=== PATIENT | female | born 1985 | race Caucasian/White ===

== ENCOUNTER 2016-10-22 01:35 | Emergency (ER) | payer BC, OTHER ==
[2016-10-22] MEDS ORDERED: ONDANSETRON HCL/PF 2 MG/ML VIAL IV ONE (01:49)
[2016-10-22] MEDS ORDERED: NORMAL SALINE 1,000 ML IV ONE (01:50)
[2016-10-22] MEDS ORDERED: ONDANSETRON HCL/PF 2 MG/ML VIAL ONE (01:52)
--- NOTE | 2016-10-22 01:54 | ERNOTE ---
Abdominal HPI - General Chief Complaint: Abdominal Pain Time Seen by Provider: 10/22/16 01:44 Source: patient Exam Limitations: no limitations - Immun/Allergies/Home Medications Immunizatons: IMMUNIZATION HX Immunizations Up to Date No History of Influenza Vaccine No Hx Pneumococcal Vaccination No Allergies/Adverse Reactions: Allergies No Known Allergies Allergy (Verified 10/22/16 01:42) Home Medications: HOME MEDICATIONS NK [No Home Medication] 10/22/16 [Last Taken Unknown] - History of Present Illness Narrative: Onset of vomiting while sleeping around 22:00. Pt had gone to bed around 21: 00. Pt had beer and shots around 18:00 and pizza after that but felt fine when she went to bed. Tried water but she continued to vomit Timing: getting worse Quality: moderate, severe Activities at Onset: sleep Prior Abdominal Problems: Present: similar symptoms - prior to cholecystectomy Review of Systems - Review of Systems Constitutional: Present: no symptoms reported EYE: Present: no symptoms reported ENT: Present: no symptoms reported Respiratory: Present: no symptoms reported Cardiology: Present: no symptoms reported Gastrointestinal/Abdominal: Present: See HPI, abdominal pain Genitourinary: Present: no symptoms reported Musculoskeletal: Present: no symptoms reported Skin: Present: no symptoms reported Neurological: Present: no symptoms reported Endocrine: Present: no symptoms reported - Patient's Past Medical History Patient History - Medical: Anxiety Patient History - Cardiac/Respiratory: No pertinent hx Patient History - Cancer: Melanoma Patient History - Surgical Procedures: Cholecystectomy, EGD, Tubal Ligation Patient History - Other: None LMP (females 10-50): last week LMP (Calendar): 10/16/16 - Family History Mother Family History - Medical: , History Unknown Father Family History - Medical: , History Unknown - Social History Living Situations: home Abuse History: No History of abuse, Physical abuse, Emotional abuse Psych History: Hx of Anxiety Does anyone smoke in the home?: Yes Smoking Status: Current every day smoker Alcohol Use: rarely Drug Use: none - Immunizations Immunizations Up to Date: No Hx Pneumococcal Vaccination: No History of Influenza Vaccine: No Physical Exam - Physical Exam General Appearance: Present: wd/wn, alert, moderate distress Eye Exam: Normal inspection: bilateral, PERRL: bilateral, EOMI: bilateral Ears, Nose, Throat: Present: normal ENT inspection Neck: Present: normal inspection, nontender, supple Respiratory: Present: no respiratory distress, no accessory muscle use Gastrointestinal/Abdominal: Present: tenderness - epigastrium, abnormal bowel sounds - decreased, guarding. Absent: distended, rebound Back Exam: Present: normal inspection, normal range of motion Extremity Exam: Present: normal range of motion, no edema Neurological Exam: Present: alert, oriented, normal mood/affect, no motor/ sensory deficits Skin Exam: Present: normal color, warm/dry ED Progress - Results and Orders Patient's Lab Results:: I have reviewed the patient's lab results. Results and Orders: Laboratory Tests 10/22/16 01:49 WBC 10.6 H Hgb 15.6 Hct 44.9 Plt Count 259 Laboratory Tests 10/22/16 10/22/16 01:49 01:49 Sodium 142 Potassium 3.7 Chloride 103 Carbon Dioxide 23.8 L Anion Gap 18.9 H BUN 9 Creatinine 0.65 Est GFR (Non-Af Amer) 112 BUN/Creatinine Ratio 13.8 Random Glucose 128 H Calcium 9.1 Total Bilirubin 0.7 AST 23 ALT 29 Alkaline Phosphatase 76 Total Protein 7.7 Albumin 4.0 Amylase 38 Lipase 96 Serum HCG, Qual Negative - Vital Signs Patient's Vital Signs:: I have reviewed the patient's vital signs. Vital Signs: Vital Signs 10/22/16 01:38 Temperature 36.9 C Pulse Rate 82 Respiratory 24 H Rate Blood Pressure 152/89 O2 Sat by Pulse 97 Oximetry - X-Ray X-Ray #1 X-Ray: abdomen Interpretation: Interp. by me X-ray Comments: Nothing acute - Progress/Reassessment Chief Complaint: Abdominal Pain Departure - Departure Clinical Impression: Vomiting Qualifiers: Vomiting type: unspecified Vomiting Intractability: unspecified Nausea presence : with nausea Qualified Code(s): R11.2 - Nausea with vomiting, unspecified Disposition: Home self-care Condition: Good Instructions: Nausea, Adult
[2016-10-22 02:10] LABS: Hematocrit 44.9 % (37.0-47.0); Hemoglobin 15.6 gm/dL (12.5-16.0); Mean Cell Volume 93.9 fl (78-100); Mean Corpuscular Hemoglobin 32.6 pg (27-31); Mean Corpuscular Hgb Conc 34.7 g/dl (32-36); Mean Platelet Volume 9.4 fl (6.0-9.5); Neutrophil # 7.8 K/mm3 (1.3-6.0); Neutrophil % 73.9 % (42-75.0); Platelet Count 259 K/mm3 (150-450); Red Blood Count 4.78 M/mm3 (4.2-5.4); Red Cell Distribution Width 13.2 % (11.5-14.0); White Blood Count 10.6 K/mm3 (4.0-10.5)
[2016-10-22 02:23] LABS: Anion Gap 18.9 mmol/L (6.8-13.8); BUN/Creatinine Ratio 13.8 (9.0-21.6); Bilirubin, Total 0.7 mg/dL (0.0-1.1); Ca. Corrected For Albumin 8.8 mg/dL (8.4-10.2); Calcium * 9.1 mg/dL (7.9-10.9); Carbon Dioxide 23.8 mmol/L (24-32.6); Potassium 3.7 mmol/L (3.4-4.6); Total Protein 7.7 gm/dL (6.2-8.2)
[2016-10-22] MEDS ORDERED: ONDANSETRON 4 MG TAB.RAPDIS PO ONE (02:42)
[2016-10-22] MEDS ORDERED: ONDANSETRON 4 MG TAB.RAPDIS ONE (02:45)
[2016-10-22 03:07] VITALS: BP 133/85
== END 2016-10-22 03:05 | disposition home or self-care (01) ==
LOC: ER 01:35
DX: R11.2 Nausea with vomiting, unspecified (principal); Z72.0 Tobacco use

== ENCOUNTER 2016-11-19 05:45 | Emergency (ER) | payer OTHER ==
[2016-11-19] MEDS ORDERED: NORMAL SALINE 1,000 ML IV ONE (05:53)
[2016-11-19] MEDS ORDERED: ONDANSETRON HCL/PF 2 MG/ML VIAL IV ONE (05:54)
[2016-11-19] MEDS ORDERED: ONDANSETRON HCL/PF 2 MG/ML VIAL ONE (05:55)
--- NOTE | 2016-11-19 06:11 | ERNOTE ---
Abdominal HPI - General Chief Complaint: Abdominal Pain Time Seen by Provider: 11/19/16 05:46 Source: patient Exam Limitations: no limitations - Immun/Allergies/Home Medications Immunizatons: IMMUNIZATION HX Immunizations Up to Date Yes History of Influenza Vaccine No Hx Pneumococcal Vaccination No Allergies/Adverse Reactions: Allergies No Known Allergies Allergy (Verified 11/19/16 05:52) Home Medications: HOME MEDICATIONS Promethazine HCl [Phenergan Suppository] 25 mg RC Q6H PRN #10 supp.rect [Last Taken Unknown] - History of Present Illness Narrative: Patient is here for nausea and vomiting. Last night before 18:00 she had three shots of alcohol. She only drinks on the weekends usually, not daily. At 02:00 she woke up once and vomited, then woke up again and has been vomiting non stop since, no diarrhea, epigastric abdominal pain, no sick exposure, no recent antibiotics. She occasionally smokes THC, last a few weeks ago. On review of her chart she has had a couple of visits a year for abdominal pain and vomiting, had her gallbladder removed two years ago Timing: constant Prior Abdominal Problems: Present: similar symptoms Prior Treatment: Absent: recently seen, treated by physician Review of Systems - Review of Systems Constitutional: Absent: recent illness, fever ENT: Absent: sore throat Respiratory: Absent: shortness of breath Cardiology: Absent: chest pain Gastrointestinal/Abdominal: Present: See HPI, nausea, vomiting, abdominal pain. Absent: diarrhea Genitourinary: Present: no symptoms reported Musculoskeletal: Absent: back pain Neurological: Absent: headache - Patient's Past Medical History Patient History - Medical: Anxiety Patient History - Cardiac/Respiratory: No pertinent hx Patient History - Cancer: Melanoma Patient History - Surgical Procedures: Cholecystectomy, EGD, Tubal Ligation Patient History - Other: None LMP (Calendar): 10/16/16 - Family History Mother Family History - Medical: , History Unknown Father Family History - Medical: , History Unknown - Social History Living Situations: home Abuse History: No History of abuse, Physical abuse, Emotional abuse Psych History: Hx of Anxiety Does anyone smoke in the home?: Yes Smoking Status: Current every day smoker Alcohol Use: rarely Drug Use: none - Immunizations Immunizations Up to Date: Yes Hx Pneumococcal Vaccination: No History of Influenza Vaccine: No Physical Exam - Physical Exam General Appearance: Present: wd/wn, alert, no apparent distress, anxious Respiratory: Present: no respiratory distress, normal breath sounds, no accessory muscle use, lungs clear Cardiovascular/Chest: Present: regular rate, rhythm, no murmur Gastrointestinal/Abdominal: Present: normal bowel sounds, nondistended, soft, tenderness - epigastric Neurological Exam: Present: alert, oriented, normal mood/affect Skin Exam: Present: normal color, warm/dry ED Progress - Results and Orders Patient's Lab Results:: I have reviewed the patient's lab results. - Vital Signs Patient's Vital Signs:: I have reviewed the patient's vital signs. Vital Signs: Vital Signs 11/19/16 05:48 Temperature 36.8 C Pulse Rate 64 Respiratory 18 Rate Blood Pressure 156/96 O2 Sat by Pulse 97 Oximetry - Progress/Reassessment Chief Complaint: Abdominal Pain Progress Note-Subjective: 11/19/16 06:15 no significant relieve with zofran, patient very anxious, (states that she has a ride if she receives sedating medications) 11/19/16 07:02 feeling much better after phenergan, nausea and pain resolved, discussed results 11/19/16 07:25 patient sleeping, easily aroused, very comfortable, tolerating po, discussed staying away from ETOH (especially on an empty stomach) as well as from THC Departure - Departure Clinical Impression: Vomiting, Epigastric abdominal pain Disposition: Home self-care Condition: Good Instructions: Nausea and Vomiting, Adult, [id number] Additional Instructions: avoid alcohol especially on an empty stomach Referrals: Tj Cazares DO [Staff Physician] - Prescriptions: Promethazine HCl [Phenergan Suppository] 25 mg RC Q6H PRN #10 supp.rect PRN Reason: Nausea
[2016-11-19] MEDS ORDERED: PROMETHAZINE HCL 25 MG in DEXTROSE 5 % IN WATER 50 ML IV ONE ×2 (06:14)
[2016-11-19 06:16] LABS: Hematocrit 45.1 % (37.0-47.0); Hemoglobin 15.7 gm/dL (12.5-16.0); Mean Cell Volume 93.2 fl (78-100); Mean Corpuscular Hemoglobin 32.4 pg (27-31); Mean Corpuscular Hgb Conc 34.8 g/dl (32-36); Mean Platelet Volume 9.6 fl (6.0-9.5); Neutrophil # 11.7 K/mm3 (1.3-6.0); Neutrophil % 78.9 % (42-75.0); Platelet Count 256 K/mm3 (150-450); Red Blood Count 4.84 M/mm3 (4.2-5.4); Red Cell Distribution Width 13.3 % (11.5-14.0); White Blood Count 14.8 K/mm3 (4.0-10.5)
[2016-11-19 06:20] LABS: Albumin * 4.2 gm/dl (3.4-5.0); Anion Gap 18.8 mmol/L (6.8-13.8); BUN/Creatinine Ratio 14.3 (9.0-21.6); Bilirubin, Total 0.8 mg/dL (0.0-1.1); Ca. Corrected For Albumin 8.2 mg/dL (8.4-10.2); Calcium * 8.7 mg/dL (7.9-10.9); Carbon Dioxide 22.8 mmol/L (24-32.6); Potassium 3.6 mmol/L (3.4-4.6); Total Protein 7.8 gm/dL (6.2-8.2)
[2016-11-19 06:46] VITALS: BP 136/87
[2016-11-19 06:47] LABS: Urine Bilirubin Negative (NEGATIVE); Urine Blood Negative /ul (NEGATIVE); Urine Ketone Negative (NEGATIVE); Urine Nitrite Negative (NEGATIVE); Urine Protein 30 mg/dL (NEGATIVE); Urine Specific Gravity >=1.030 SP.GR. (1.005-1.010); Urine Urobilinogen Normal (NORMAL)
[2016-11-19 07:00] LABS: Urine Appearance Clear; Urine Bacteria 1+; Urine Color Yellow; Urine Mucus Few - 1+; Urine RBC None Seen /hpf (0-5); Urine WBC 0-5 /hpf (0-5)
[2016-11-19 07:08] LABS: Cocaine Ur Negative (NEGATIVE); Urine Barbiturate Negative (NEGATIVE); Urine Benzodiazepines Negative (NEGATIVE); Urine Opiates Negative (NEGATIVE); Urine PCP Negative (NEGATIVE)
[2016-11-19 07:09] LABS: Urine THC Positive (NEGATIVE)
== END 2016-11-19 07:31 | disposition home or self-care (01) ==
LOC: ER 05:45
DX: R11.10 Vomiting, unspecified (principal); R10.13 Epigastric pain; F17.210 Nicotine dependence, cigarettes, uncomplicated
CPT/HCPCS: 36415; 80053; 80307; 81001; 82150; 83690; 84703; 85025; 96365; 96375; 99284; J2405

== ENCOUNTER 2017-01-01 11:38 | Emergency (ER) | payer OTHER ==
[2017-01-01] MEDS ORDERED: PROMETHAZINE HCL 25 MG in DEXTROSE 5 % IN WATER 50 ML IV ONE ×2 (11:49)
[2017-01-01] MEDS ORDERED: NORMAL SALINE 1,000 ML IV ONE (11:49)
[2017-01-01] MEDS ORDERED: DICYCLOMINE HCL 10 MG/ML AMPUL IM ONE ×2 (11:50→12:11)
[2017-01-01 12:06] LABS: Hematocrit 44.9 % (37.0-47.0); Hemoglobin 15.5 gm/dL (12.5-16.0); Mean Cell Volume 94.5 fl (78-100); Mean Corpuscular Hemoglobin 32.6 pg (27-31); Mean Corpuscular Hgb Conc 34.5 g/dl (32-36); Mean Platelet Volume 9.2 fl (6.0-9.5); Neutrophil # 8.7 K/mm3 (1.3-6.0); Neutrophil % 83.2 % (42-75.0); Platelet Count 293 K/mm3 (150-450); Red Blood Count 4.75 M/mm3 (4.2-5.4); Red Cell Distribution Width 13.2 % (11.5-14.0); White Blood Count 10.4 K/mm3 (4.0-10.5)
[2017-01-01] MEDS ORDERED: PANTOPRAZOLE SODIUM 40 MG in NORMAL SALINE 100 ML IV ONE (12:06)
[2017-01-01 12:09] LABS: Urine Bilirubin Negative (NEGATIVE); Urine Blood Negative /ul (NEGATIVE); Urine Ketone Negative (NEGATIVE); Urine Nitrite Negative (NEGATIVE); Urine Protein 30 mg/dL (NEGATIVE); Urine Urobilinogen Normal (NORMAL); Urine pH 8.5 pH (5.0-7.0)
[2017-01-01] MEDS ORDERED: PANTOPRAZOLE SODIUM 40 MG/100 ML PIGGYBACK IV ONE (12:11)
[2017-01-01 12:19] LABS: Urine Appearance Clear; Urine Bacteria None Seen; Urine Color Yellow; Urine RBC None Seen /hpf (0-5); Urine WBC None Seen /hpf (0-5)
[2017-01-01 12:20] LABS: ALT 25 U/L (19-67); AST 19 U/L (0-48); Albumin * 4.1 gm/dl (3.4-5.0); Alkaline Phosphatase * 70 U/L (50-170); Anion Gap 15.4 mmol/L (6.8-13.8); BUN/Creatinine Ratio 11.9 (9.0-21.6); Bilirubin, Total 0.5 mg/dL (0.0-1.1); Blood Urea Nitrogen 8 mg/dL (3-23); Ca. Corrected For Albumin 8.4 mg/dL (8.4-10.2); Calcium * 8.8 mg/dL (7.9-10.9); Carbon Dioxide 26.5 mmol/L (24-32.6); Chloride 105 mmol/L (97-106); Glucose * 113 mg/dL (70-110); Lipase 74 U/L (73-393); Potassium 3.9 mmol/L (3.4-4.6); Sodium 143 mmol/L (132-142); Total Protein 7.8 gm/dL (6.2-8.2)
--- NOTE | 2017-01-01 12:59 | ERNOTE ---
Medical Problem HPI - Narrative Date of Service: 01/01/17 - General Chief Complaint: Nausea/Vomiting Time Seen by Provider: 01/01/17 11:44 Source: patient Exam Limitations: no limitations - Immun/Allergies/Home Medications Immunizations: IMMUNIZATION HX Immunizations Up to Date Yes History of Influenza Vaccine No Hx Pneumococcal Vaccination No Allergies/Adverse Reactions: Allergies No Known Allergies Allergy (Verified 01/01/17 11:48) Home Medications: HOME MEDICATIONS Promethazine HCl [Phenergan Suppository] 25 mg RC Q6H PRN #10 supp.rect [Last Taken Unknown] Dicyclomine HCl [Bentyl] 10 - 20 mg PO TID #20 tab 01/01/17 [Last Taken Unknown] Ondansetron [Zofran Odt] 4 mg PO Q8H PRN #10 tab 01/01/17 [Last Taken Unknown] Pantoprazole Sodium [Protonix] 40 mg PO DAILY #7 tab 01/01/17 [Last Taken Unknown] - History of Present History Narrative: Vomiting and epigastric pain. Patient presents to the ED with recurrent vomiting and epigastric pain. She relates she has had this several times but is was worse this morning. She has chronic diarrhea, no different. She relates heving a couple of shots last night and this am woke up with vomiting then epigastric pain. No fever. No CP or SOB. No blood in vomit or stool. She relates chronic "acid" in her stomach. pain can be severe with the vomiting. Now moderate. She tells me this is exactly like what she has had before. Timing: constant Severity: moderate Modifying Factors - (Improves): Present: other - nothing Modifying Factors - (Worsens): Present: other - nothing Review of Systems - Review of Systems Constitutional: Absent: fever Respiratory: Absent: shortness of breath Cardiology: Absent: chest pain Gastrointestinal/Abdominal: Present: See HPI Genitourinary: Absent: dysuria, discharge Skin: Absent: rash Neurological: Absent: weakness - Patient's Past Medical History Patient History - Medical: Anxiety Patient History - Cardiac/Respiratory: No pertinent hx Patient History - Cancer: Melanoma Patient History - Surgical Procedures: Cholecystectomy, EGD, Tubal Ligation Patient History - Other: None LMP (Calendar): 10/16/16 - Family History Mother Family History - Medical: , History Unknown Father Family History - Medical: , History Unknown - Social History Living Situations: home Abuse History: No History of abuse, Physical abuse, Emotional abuse Psych History: Hx of Anxiety Does anyone smoke in the home?: Yes Alcohol Use: rarely Drug Use: none - Immunizations Immunizations Up to Date: Yes Hx Pneumococcal Vaccination: No History of Influenza Vaccine: No Physical Exam - Physical Exam General Appearance: Present: alert, no apparent distress Head Exam: Present: normal inspection, no evidence of injury Eye Exam: Normal inspection: bilateral, PERRL: bilateral Ears, Nose, Throat: Present: normal ENT inspection. Absent: dry mucous membranes Neck: Present: normal inspection Respiratory: Present: no respiratory distress, normal breath sounds, no accessory muscle use, lungs clear Cardiovascular/Chest: Present: regular rate, rhythm, normal peripheral pulses Gastrointestinal/Abdominal: Present: normal bowel sounds, nondistended, soft, no organomegaly, other - mild epigastric tendenress to deep palpation. No other tenderness in the abdomen. No guarding or rebound. No peritoneal signs. Non-surgical exam Back Exam: Absent: CVA tenderness (R), CVA tenderness (L) Extremity Exam: Present: normal inspection Neurological Exam: Present: alert, normal mood/affect, no motor/sensory deficits Skin Exam: Present: normal color, warm/dry ED Progress - Results and Orders Patient's Lab Results:: I have reviewed the patient's lab results. - Vital Signs Patient's Vital Signs:: I have reviewed the patient's vital signs. Vital Signs: Vital Signs 01/01/17 01/01/17 11:39 11:44 Temperature 36.5 C Pulse Rate 86 Respiratory 22 H Rate Blood Pressure 141/89 131/92 O2 Sat by Pulse 99 Oximetry - Progress/Reassessment Chief Complaint: Nausea/Vomiting Progress Note-Subjective: 01/01/17 12:53 Re-check reveals only mild epigastric tendenress. Non-surgical exam. I discussed CT with her but she does not want this. She understands risks and benefits of this but her labs look ok and she has a non-surgical exam. Nothing to suggest GI bleed. No further vomiting. She wishes to go home. I disucssed warning signs and reasons to return as well as the need for close f/u. Departure - Departure Clinical Impression: Vomiting, Epigastric abdominal pain Disposition: Home self-care Condition: Stable Instructions: Abdominal Pain, Adult, [id number] Additional Instructions: Rest. Fluids. medications as directed. Follow-up with a doctor Wednesday for a re-check. Return here if you change your mind about having a CT scan, develop fever, increased pain or if your condition worsens or changes in any way. Prescriptions: Dicyclomine HCl [Bentyl] 10 - 20 mg PO TID #20 tab Ondansetron [Zofran Odt] 4 mg PO Q8H PRN #10 tab PRN Reason: Vomiting Pantoprazole Sodium [Protonix] 40 mg PO DAILY #7 tab
[2017-01-01 14:00] VITALS: BP 120/73
== END 2017-01-01 13:51 | disposition home or self-care (01) ==
LOC: ER 11:38
DX: R11.11 Vomiting without nausea (principal); R10.13 Epigastric pain; Z85.820 Personal history of malignant melanoma of skin
CPT/HCPCS: 36415; 80053; 81001; 83690; 84703; 85025; 96365; 96367; 99284; G0481